=== PATIENT | male | born 1990 | race African-American/Black ===

== ENCOUNTER 2018-05-25 06:01 | Emergency (ER) | payer BC ==
[~2018-05-25] VITALS: Ht 182.9 cm; Wt 122.5 kg
[2018-05-25] MEDS ORDERED: ADVIL100 MG (06:21)
== END 2018-05-25 21:55 | disposition home or self-care (01) ==
LOC: ER 06:01
DX: J09.X2 Influenza due to identified novel influenza A virus with other respiratory manifestations (principal); K52.89 Other specified noninfective gastroenteritis and colitis